=== PATIENT | female | born 1950 | race Caucasian/White ===

== ENCOUNTER → 2018-01-23 | Day surgery (SDC) | payer OTHER ==
[~2018-01-23] VITALS: Ht 149.9 cm; Wt 74.8 kg
[~2018-01-23] MED LIST: BIOTIN1 MG PO; DAILY MULTIPLE1 EACH PO
--- NOTE | 2018-01-25 13:41 | Operative Report ---
Operative/Inv Procedure Report Surgery Date: 01/23/18 Name of Procedure: Robotic 15 cm coated Parietex mesh repair of incarcerated ventral incisional hernia Pre-Operative Diagnosis: incarcerated ventral incisional hernia Post-Operative Diagnosis: same Estimated Blood Loss: scant Surgeon/Relief Cook: Myrtle ARREOLA,Saji Murillo Anesthesia: general endotracheal tube Operative/Procedure Note Note: Patient was positioned supine on the table. After successful induction of general anesthesia the abdomen was clipped prepped and draped in usual sterile fashion. The abdominal skin is marked to guide where the mesh will lay, centered under the defect, and where the 3 8 mm robotic trochars will be positioned, in this case because of the distances and angles we aimed in the epigastrium palmers point in the left then subxiphoid and then palmers point on the right. After injection of local anesthetic at a spot in the mid to lateral left subcostal area, a horizontal 1 cm incision was made with a 15 blade. Using the plastic pointed-tipped translucent 8 mm with a metal robotic trocar and the camera inserted, the abdominal wall was traversed through this incision, watching on the screen, as the trocar passes through the layers, alternating colors, yellow fat white fascia red muscle, until the tip just seems to vivar the inner thin peritoneal layer. At that point, I stop pushing and check if it's open by turning on the gas. If the belly insufflates then you know you can advance that large trocar into an empty space more directly without injuring the viscera. The gas was turned on to 15 mm. At this point you can see the umbilical ventral defect, the incarcerated fat and omentum was reduced. Next the 2 remaining 8 mm robotic trochars are placed under direct vision. The robot then is brought to the patient attached docked and targeted. First numerous adhesions between the omentum and the peritoneal surface and also bowel wall near the defect including some transverse colon were taken down sharply under direct vision. The defect was re-evaluated and eventhough CT showed one hole, it was actually a cluster, the fatty and portions of bowel incarcerated parts of these little sacs were reduced. We decided that maintaining the integrity if the flap past this conglomerate, and also the scar and lack of plane in midline, that instead should just sew in a coated mesh. The defects were then closed with a running continuous 0 V lock, absorbable. We then chose a Velcro type of mesh not coated sized it to 12 cm marked the rough surface rolled up like a scroll and stuffed down one of the trochars centered it over the defect on the near side there was one part that was growing a little bit we tacked that down into place with interrupted 3-0 Vicryl suture otherwise the mesh laid nicely and flat we had stopped corners to prevent curling it fit well within the flap that we had created and then we closed the flap that vertical line on the near side with a running 2-0 V lock suture. Next we checked for hemostasis and then undocked letting the gas escape pulling out the instruments and the trochars these 3 incisions were small there was no fascial closure needed and we then closed the skin with subcuticular 4-0 Monocryl, and then Mastisol, Steri-Strips and Band-Aids. Overall estimated blood loss was minimal, lap and sponge counts were correct, wound expectancy was clean, IV fluids crystalloid, complications none, patient tolerated the procedure well, did not significantly dailey during extubation and was returned to the recovery room in satisfactory condition.
== END ==
LOC: STS 01:55
DX: K43.0 Incisional hernia with obstruction, without gangrene (principal)
CPT/HCPCS: 49655; 64488; S2900; J0131; J0690; J2250; J3490